=== PATIENT | male | born 1985 | race Two or more races ===

== ENCOUNTER 2016-11-30 23:43 | Emergency (ER) | payer OTHER, BC ==
[2016-11-30 23:57] VITALS: BP 123/79
[2016-12-01] MEDS ORDERED: HYDROCODONE/ACETAMINOPHEN 5-325 MG 6 TAB/DSPK PO PRN (00:37)
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
== END 2016-12-01 00:54 | disposition home or self-care (01) ==
LOC: ER 23:43
DX: M54.2 Cervicalgia (principal); M54.89 Other dorsalgia; V48.5XXA Car driver injured in noncollision transport accident in traffic accident, initial encounter
CPT/HCPCS: 99284; L0120

== ENCOUNTER → 2019-04-24 | Outpatient (CLI) | payer SELFPAY ==
[2019-04-24 13:17] LABS: SPERM MORPHOLOGY SENT TO REFERENC LAB
[2019-04-24 14:11] LABS: SPERM CONCENTRATION 86.4 X10^6/mL (>12.0); SPERM PROGRESSION 3; TOTAL SPERM COUNT 164.2 X10^6 (>33.0)
== END ==
LOC: LAB 12:52
PROVIDERS: ATTEND Nurse Practitioner Family
DX: N46.9 Male infertility, unspecified (principal)
CPT/HCPCS: 89320